=== PATIENT | female | born 1930 | race Caucasian/White ===

== ENCOUNTER 2018-09-19 15:18 | Inpatient (IN) | payer OTHER ==
[~2018-09-19] VITALS: Ht 167.6 cm; Wt 53.1 kg
[~2018-09-19 15:18] MED LIST: ASA PO; AUG875 PO; LISI-209 PO
--- NOTE | 2018-09-19 15:37 | NUR ---
Patient to ER bed H1 for evaluation. Side rails up.
[2018-09-19 15:38] VITALS: BP_SYST 127
--- NOTE | 2018-09-19 15:38 | NUR ---
Pt AAOx3 BIB BLS c/o R hip pain s/p trip and fall prior to arrival. Pt states "I can't move my leg!" 07/10 pain. No other injuries/complaints per pt/noted. Will continue to monitor.
--- NOTE | 2018-09-19 15:41 | NUR ---
ER Dr. GROSS at bedside examining patient.
[2018-09-19] MEDS ORDERED: fentaNYL CITRATE/PF 100 MCG/2 ML AMP IVP ONE (15:45)
--- NOTE | 2018-09-19 16:05 | NUR ---
PT RETURNED FROM RADIOLOGY
--- NOTE | 2018-09-19 16:23 | NUR ---
Fentanyl 50 mcg IVP administered. Pt tolerated well. No adverse reactions noted.
[2018-09-19 16:28] LABS: ANION GAP 7 (5-15); CALCIUM 8.6 mg/dL (8.4-11.0); CHLORIDE 105 mmol/L (98-107); CREATININE 0.79 mg/dL (0.55-1.30); GLUCOSE 183 mg/dL (70-99); POTASSIUM 3.5 mmol/L (3.5-5.1); SODIUM SERUM 139 mmol/L (136-145); UREA NITROGEN, BLOOD 26 mg/dL (8-21)
[2018-09-19 16:31] LABS: INR 0.9 (0.8-1.2); PROTHROMBIN TIME 9.6 SECS (9.5-12.5)
[2018-09-19 16:32] LABS: ALANINE AMINOTRANSFERASE 18 U/L (12-78); ALBUMIN 3.1 g/dL (3.4-4.8); ASPARTATE AMINOTRANSFERASE 17 U/L (10-37); TOTAL BILIRUBIN 0.2 mg/dL (0.0-1.0)
[2018-09-19 16:42] LABS: BILIRUBIN,URINE NEGATIVE (NEGATIVE); BLOOD, URINE 1+ (NEGATIVE); CLARITY/URINE SL CLOUDY (CLEAR); COLOR,URINE YELLOW (YELLOW); GLUCOSE,URINE TRACE (NEGATIVE); KETONES,URINE TRACE (NEGATIVE); LEUKOCYTE ESTERASE ,URINE 2+ (NEGATIVE); NITRITE, URINE POSITIVE (NEGATIVE); PROTEIN URINE NEGATIVE (NEGATIVE); UROBILINOGEN,URINE 0.2 (0.2-1.0)
[2018-09-19 16:49] LABS: BACTERIA,URINE MODERATE /HPF (None Seen); WBC,URINE >100 /HPF (0-3)
[2018-09-19] MEDS ORDERED: cefTRIAXone 1 GM IVPB PREMIX 50 ML IV ONE (17:00)
[2018-09-19 17:07] LABS: BASOPHILS % (AUTO) 0.1 % (0.0-2.0); EOSINOPHILS # (AUTO) 0.2 K/uL (0.0-0.4); EOSINOPHILS % (AUTO) 2.4 % (0.0-4.0); HEMATOCRIT 34.7 % (36-48); HEMOGLOBIN 11.8 g/dL (12.0-16.0); LYMPHOCYTES # (AUTO) 1.2 K/uL (1.0-5.5); LYMPHOCYTES % (AUTO) 15.8 % (20.5-51.5); MEAN CORPUSCULAR HEMOGLOBIN 31 pg (27-31); MEAN CORPUSCULAR HGB CONC 34 % (32-36); MEAN CORPUSCULAR VOLUME 91 fL (79.0-98.0); MONOCYTES # (AUTO) 0.6 K/uL (0.0-1.0); MONOCYTES % (AUTO) 7.7 % (1.7-9.3); NEUTROPHILS # (AUTO) 5.4 K/uL (1.8-7.7); PLATELET COUNT (AUTO) 193 K/uL (130-430); RED CELL DISTRIBUTION WIDTH 14.5 % (9.0-15.0); WHITE BLOOD COUNT (AUTO) 7.4 K/uL (4.8-10.8)
--- NOTE | 2018-09-19 17:36 | NUR ---
Rocephin 1 gm administered. Pt tolerated well. No adverse reactions noted.
--- NOTE | 2018-09-19 18:07 | NUR ---
Patient will be admitted to [facility]. Admitted to Medsurg unit. Will go to room 123A. Summary report printed. Report will be given at bedside.
--- NOTE | 2018-09-19 18:18 | NUR ---
Admission: Received from ER on a gurney with the diagnosis of Right hip fracture. Patient is alert and oriented. Oquendo catheter algerian 16 inserted in the ER with yellow urine output. Oriented to room routine, call light within reach. Accompanied by and daughter.
--- NOTE | 2018-09-19 18:30 | NUR ---
Report: Report given to [facility] nurse,patient comfortable,with mild pain and family at the bedside.
[2018-09-19 18:35] VITALS: BP_SYST 144
[2018-09-19] MEDS ORDERED: ONDANSETRON HCL 4 MG/2 ML VIAL IVP PRN (19:00)
[2018-09-19] MEDS ORDERED: MORPHINE 4 MG/ML INJ. SYRINGE IVP PRN ×2 (19:00)
--- NOTE | 2018-09-19 19:12 | NUR ---
patient comfortable in bed, family at bedside, endorsed care to Giulia LIEBERMAN.
[2018-09-19 20:00] VITALS: BP_SYST 138
--- NOTE | 2018-09-19 20:00 | NUR ---
INITIAL NOTES: RECEIVED REPORT FROM LUISANA HEALY AT 1915, PATIENT IN BED AWAKE ORIENTED X3. AND CHILDREN ARE AT BEDSIDE.VITAL SIGNS TAKEN AND RECORDED.PATIENT HAS TOLERABLE PAIN TO RIGHT HIP. DAUGHTER DID ASKED MANY QUESTIONS ABOUT PLAN OF CARE , NAME OF CONSULTING AND PRIMARY DOCTORS ,PAIN MEDS ORDERED.ABLE TO ANSWER QUESTION ON THEIR UNDERSTANDING.SALINE LOCK PATENT. ESPINOZA CATHETER DRAINING CLEAR MELANIE URINE. WILL MONITOR CLOSELY.
--- NOTE | 2018-09-19 20:25 | NUR ---
PAIN: COMPLAIN OF MODERATE RIGHT HIP FRACTURED PAIN. INFORMED AGAIN FAMILY MORPHINE IV IS ORDERED. DAUGHTER TOLD PATIENT SISTER WHO IS AT HOME SAYS HAD BAD EXPERIENCED OF CONFUSION/WEIRED FEELING WITH MORPHINE .THEREFORE WHOLE FAMILY DECIDED NOT TO GIVE MORPHINE AND REFUSE. MENTIONED ABOUT NORCO WHICH PATIENT HAD BEFORE LONG TIME. TOLD THEM WILL INFORM MD. TYLENOL 650MG PO GIVEN FOR NOW.MORPHINE IV WAS WASTED.
[2018-09-19] MEDS: ACETAMINOPHEN 325 MG TABLET PO PRN (20:26)
--- NOTE | 2018-09-19 22:40 | NUR ---
DR. SUTHERLAND WAS PAGED 2X ,DID ANSWER THIS TIME. INFORMED MD FAMILIES REFUSE TO GIVE MORPHINE ,PREFER NORCO WHICH IS ORDERED.
[2018-09-19 23:02] VITALS: BP_SYST 132
--- NOTE | 2018-09-19 23:10 | NUR ---
CONSULT REASON FOR CONSULT: HIP FX PERSON I SPOKE WITH: KEVIN CONSULTING PHYSICIAN: DR. MORA (DR. RAJAN EXECUTOR OF ESTATE) IMMUNOLOGIST PHONE NUMBER: [phone] ORDERING PHYSICIAN: DR. SUTHERLAND
--- NOTE | 2018-09-19 23:45 | NUR ---
NORCO PO NOT GIVEN ,PATIENT SOUND ASLEEP.
--- NOTE | 2018-09-20 02:50 | NUR ---
PATIENT HAS URGE TO HAVE BOWEL MOVEMENT. PASSED LARGE GAS WHILE PLACING BED TREJO.
--- NOTE | 2018-09-20 03:00 | NUR ---
REMOVED BED TREJO. NO STOOL. PASSED GAS AGAIN, REPOSITIONED WITH PAIN.
[2018-09-20] MEDS: HYDROcodone/ACETAMIN 5-325 MG TAB (NORCO/ VICODIN) PO PRN ×2 (03:12→15:09)
--- NOTE | 2018-09-20 03:13 | NUR ---
MDICATED WITH NORCO 5/325MG PO WITH SIPS OF WATER. REFUSED MORPHINE IV.
--- NOTE | 2018-09-20 03:40 | NUR ---
ASSESSED PATIENT ,NO SIGN UNTOWARD REACTION EXCEPT CONFUSION/ FORGETFULNES WHICH IS NOT NEW.
--- NOTE | 2018-09-20 04:00 | NUR ---
KEEPS REPEATING NEEDS TO URINATE ,EXPLAIN PRESENCE OF ESPINOZA CATH. LOW ABDOMEN VERY SOFT,GOOD AMT OF URINE. SHOWED BAG TO HER.
--- NOTE | 2018-09-20 04:30 | NUR ---
HER SISTER CORI CALLED AND BOTH TALK.
--- NOTE | 2018-09-20 05:00 | NUR ---
PATIENT CALLED FEELS UPSET. NOBODY IS SEEING HER.SHE IS LEFT ALONE. AND CHILDREN LEFT WITHOUT SAYING GOOD BYE.EMOTIONAL SUPPORT AND REASSURANCES PROVIDED. STAYED WITH PATIENT AND LISTENED TO HER REPEATEDLY CONCERNS.
--- NOTE | 2018-09-20 05:50 | NUR ---
CALLED MARITA DAUGHTER REPORTED CURRENT SITUATIONS OF PATIENT, LIKE FEELING LEFT ALONE. UPSET. DAUGHTER SAID SHE WILL TALK TO HER FATHER AND SON TO COME SOON THEY CAN. INFORMED PATIENT ABOUT THE CALL AND MESSAGES,THAT FAMILIES WILL COME.
--- NOTE | 2018-09-20 07:00 | NUR ---
CLOSING: PATIENT IS VERY FORGETFUL,UPSET THIS MORNING. REASSURANCES AND EMOTIONAL SUPPORT PROVIDED. ALL NEEDS WERE ATTENDED. ESPINOZA DRAINING WELL.ENDORSED CARE TO AM RN.
[2018-09-20 08:00] VITALS: BP_SYST 128
--- NOTE | 2018-09-20 08:00 | NUR ---
A/O X3. PATIENT HAS TOLERABLE PAIN TO RIGHT HIP. IV ON THE LEFT FA, #20, SL. ESPINOZA CATHETER DRAINING CLEAR MELANIE URINE. CALL LIGHT IN PLACE, BED LOCKED AT THE LOWEST POSITION, WILL CONTINUE TO MONITOR.
--- NOTE | 2018-09-20 10:51 | NUR ---
Nutrition Update Mao Scale 15 noted. Pt admitted for hip fracture. Diet: regular BMI: 18.9 kg/m2 RD to follow per nutrition care standards.
--- NOTE | 2018-09-20 12:00 | NUR ---
DR. SUTHERLAND IS CALLED ABOUT THE DIET ORDER, AND GAVE ORDERS.
[2018-09-20 12:45] VITALS: BP_SYST 138
--- NOTE | 2018-09-20 14:30 | NUR ---
DR. MORA IS AT BEDSIDE EXPLAINING THE POC TO THE FAMILY.
[2018-09-20 16:24] VITALS: BP_SYST 130
--- NOTE | 2018-09-20 18:05 | NUR ---
PATIENT IS FED DINNER BY FAMILY WITH THE SUPERVISION OF RN. NO SIGNS OF DISTRESS NOTED.
--- NOTE | 2018-09-20 19:38 | NUR ---
OPENING NOTE RECEIVED CARE OF PT AND BEDSIDE REPORT. BUCKS TRACTION [address] PT AWAKE AND RESTING IN BED WITH FAMILY AT BEDSIDE, NO SIGNS OF ACUTE DISTRESS NOTED. FLEXI PULSE IN PLACE. NO SIGN OF INFILTRATION AT IV SITE. PT INSTRUCTED TO USE CALL LIGHT FOR ASSISTANCE, SAFETY PRECAUTIONS IN PLACE. WILL CONTINUE TO MONITOR.
--- NOTE | 2018-09-20 19:50 | NUR ---
DR. CHAVEZ IS CALLED ABOUT THE IV FLUIDS AFTER MN. ORDER IS GIVEN, WILL BE CARRIED OUT.
[2018-09-20 20:00] VITALS: BP_SYST 124
--- NOTE | 2018-09-20 23:15 | NUR ---
MRSA NARES SENT TO LAB MRSA nares sent to lab for pre-op.
--- NOTE | 2018-09-21 | NUR ---
NPO AT MIDNIGHT PT NPO FOR SURGERY. PT AND FAMILY INSTRUCTED THAT PT IS NOT TO EAT OR DRINK ANYTHING BY MOUTH. ORANGE NPO CONE PLACED AT BEDSIDE. PT INSTRUCTED TO CALL FOR ASSISTANCE, SAFETY PRECAUTIONS OBSERVED. WILL CONTINUE TO MONITOR.
[2018-09-21] MEDS: 0.45% NACL 1,000 ML IV SCH ×2 (00:22→19:29)
[2018-09-21 00:30] VITALS: BP_SYST 127
--- NOTE | 2018-09-21 00:30 | NUR ---
PRIORITY LAB REQUEST SPOKE TO JUDITH FROM LAB TO REQUEST PRIORITY AM LAB DRAW.
--- NOTE | 2018-09-21 01:50 | NUR ---
SANGY PULSES PT AND REFUSING SCD'S AT THIS TIME. EDUCATED PT REGARDING IMPORTANCE OF SCD'S, PT CONTINUED TO REFUSE. WILL CONTINUE TO REINFORCE EDUCATION.
--- NOTE | 2018-09-21 02:00 | NUR ---
REPOSITIONED/REFUSED PRN PAIN MEDICATION PT STATING THAT SHE IS IN PAIN ON RIGHT HIP, EDUCATED PT ON PRN PAIN MEDICATION. PT IS REFUSING PAIN MEDICATION AT THIS TIME. PT REPOSITIONED FOR COMFORT. WILL CONTINUE TO MONITOR.
--- NOTE | 2018-09-21 04:00 | NUR ---
BEDPAN/REFUSED CHUX CHANGE PT PUT ON BEDPAN, UNABLE TO GO AT THIS TIME. PT OFFERED BY RN AND LINEN ROOM SUPERVISOR TO CHANGE CHUX, PT REFUSED AT THIS TIME STATING THAT IT WAS NOT SOILED. SAFETY PRECAUTIONS IN PLACE, PT INSTRUCTED TO CALL FOR ASSISTANCE.
--- NOTE | 2018-09-21 05:27 | NUR ---
NURSING NOTE PT RESTING IN BED, AT BEDSIDE. PT DENIES PAIN AT THIS TIME. NO SIGNS OF ACUTE DISTRESS NOTED. PT ABLE TO WIGGLE TOES ON RIGHT FOOT. SAFETY PRECAUTIONS OBSERVED, CALL LIGHT WITH PT, PT INSTRUCTED TO CALL FOR ASSISTANCE, WILL CONTINUE TO MONITOR.
[2018-09-21 06:30] LABS: BASOPHILS # (AUTO) 0.1 K/uL (0.0-0.2); BASOPHILS % (AUTO) 0.5 % (0.0-2.0); EOSINOPHILS # (AUTO) 0.1 K/uL (0.0-0.4); EOSINOPHILS % (AUTO) 0.9 % (0.0-4.0); HEMATOCRIT 28.5 % (36-48); HEMOGLOBIN 9.1 g/dL (12.0-16.0); LYMPHOCYTES # (AUTO) 2.4 K/uL (1.0-5.5); LYMPHOCYTES % (AUTO) 23.5 % (20.5-51.5); MEAN CORPUSCULAR HEMOGLOBIN 30 pg (27-31); MEAN CORPUSCULAR HGB CONC 32 % (32-36); MONOCYTES # (AUTO) 1.2 K/uL (0.0-1.0); MONOCYTES % (AUTO) 11.9 % (1.7-9.3); NEUTROPHILS # (AUTO) 6.3 K/uL (1.8-7.7); NEUTROPHILS % (AUTO) 63.2 % (40.0-70.0); PLATELET COUNT (AUTO) 133 K/uL (130-430); RED BLOOD CELL COUNT(AUTO) 3.07 MIL/uL (4.2-6.2); RED CELL DISTRIBUTION WIDTH 13.8 % (9.0-15.0); WHITE BLOOD COUNT (AUTO) 10.1 K/uL (4.8-10.8)
[2018-09-21 06:31] LABS: ANION GAP 4 (5-15); CALCIUM 8.3 mg/dL (8.4-11.0); CHLORIDE 104 mmol/L (98-107); CREATININE 0.66 mg/dL (0.55-1.30); GLUCOSE 110 mg/dL (70-99); SODIUM SERUM 136 mmol/L (136-145); UREA NITROGEN, BLOOD 17 mg/dL (8-21)
[2018-09-21 06:33] LABS: MEAN CORPUSCULAR VOLUME 93 fL (79.0-98.0)
--- NOTE | 2018-09-21 07:35 | NUR ---
received endorsement from night nurse. patient aaox 4. no pain noted. on npo status. respiration is even and unlabored. vitals signs stable. lungs bilaterally clear. no sob noted. no oxygen. patient and is aware of the procedure for ORIF rt hip. has IV access on the left forearm #20. 1/2 normal saline of 70cc/hr infusing on well. has scds bilaterally in place. has 5 bucks traction in placed. has linton catheter in placed draining well clear yellow urine.
--- NOTE | 2018-09-21 07:56 | NUR ---
CLOSING NOTE PT RESTING IN BED WITH FAMILY AT BEDSIDE. ENDORSED CARE TO DAY SHIFT RN, BEDSIDE REPORT GIVEN. NO SIGNS OF DISTRESS, SAFETY PRECAUTIONS IN PLACE. ALL NEEDS MET DURING SHIFT.
[2018-09-21 08:21] VITALS: BP_SYST 150
--- NOTE | 2018-09-21 09:00 | NUR ---
PT TAKEN TO SURGERY, ENDORSED TO SURGERY RN.
--- NOTE | 2018-09-21 09:00 | NUR ---
patient for surgery at this time. is aware.
[2018-09-21] MEDS ORDERED: POLYMYXIN 500,000/BACIT.10,000 UNITS in NS IRR 1 L IR ONE (09:31)
--- NOTE | 2018-09-21 09:34 | NUR ---
patient on surgery for Dr. Rodríguez.
--- NOTE | 2018-09-21 10:30 | NUR ---
patient still in surgery
[2018-09-21] MEDS ORDERED: MORPHINE SULFATE 10MG/10ML PF AMP SP SCH (10:45)
[2018-09-21] MEDS ORDERED: ONDANSETRON HCL 4 MG/2 ML VIAL IVP PRN (10:45)
[2018-09-21] MEDS ORDERED: NALOXONE HCL 0.4 MG/ML AMP (NARCAN) IVP PRN ×2 (10:45)
[2018-09-21] MEDS ORDERED: NALBUPHINE HCL 10 MG/ML AMP IVP PRN (10:45)
[2018-09-21] MEDS ORDERED: fentaNYL CITRATE/PF 100 MCG/2 ML AMP IVP PRN ×2 (10:45)
[2018-09-21] MEDS ORDERED: KETOROLAC TROMETHAMINE 60 MG/2 ML VIAL IM PRN (10:45)
[2018-09-21 11:34] VITALS: BP_SYST 127
[2018-09-21] MEDS ORDERED: MILK OF MAGNESIA 30 ML UDC PO PRN (12:15)
[2018-09-21] MEDS ORDERED: DIPHENHYDRAMINE HCL 25 MG CAPSULE PO PRN (12:15)
[2018-09-21 12:30] VITALS: BP_SYST 138
--- NOTE | 2018-09-21 12:40 | NUR ---
patient came back from recovery. patient had spinal anesthesia. on report patient becomes confused and tries to get out of bed. still with LR infusing on well. rt hip dressing dry and intact. no bleeding noted. will continue to monitor patients status. has flexi pulse in placed. nerovascular checked done. will continue to monitor patients status.
--- NOTE | 2018-09-21 14:35 | NUR ---
patient alert but confused at times. knows her name. forget where she at. verbalized feels hot. afebrile. made comfortable.
--- NOTE | 2018-09-21 14:50 | NUR ---
complained of itchiness on both knees and hands, chest too. informed patient and family. will give benadryl. no pain noted.
[2018-09-21] MEDS: DIPHENHYDRAMINE INJ 50 MG/ML VIAL IVP PRN ×2 (14:57→22:47)
--- NOTE | 2018-09-21 14:57 | NUR ---
benadryl 25 mg iv given and flush with 10cc normal saline. made comfortable.
--- NOTE | 2018-09-21 15:07 | NUR ---
Dr Nuñez called for O2 Saturation low. Respiratory therapist informed respiratory treatment done. continous monitoring on the hob elevated. Abg done. latest O2 Sat is 90% on non rebreather mask.
[2018-09-21 16:25] VITALS: BP_SYST 129
--- NOTE | 2018-09-21 16:37 | NUR ---
will continue to monitor patients status.
--- NOTE | 2018-09-21 18:44 | NUR ---
repositioned to sides. no itchiness noted. monitor patient status. family still at the bedsdie.
--- NOTE | 2018-09-21 19:30 | NUR ---
OPENING NOTE RECEIVED CARE OF PT AND BEDSIDE REPORT. PT DENIES PAIN AT THIS TIME. NO SIGNS OF ACUTE DISTRESS NOTED. IVF RUNNING ORDERED, NO SIGNS OF INFILTRATION AT IV SITE. PT ABLE TO WIGGLE TOES ON RIGHT FOOT. DRESSING ON RIGHT HIP DRY AND INTACT. INCENTIVE SPIROMETER AT BEDSIDE, PT EDUCATED ON PROPER USE OF INCENTIVE SPIROMETER, PT VERBALIZED UNDERSTANDING. PT INSTRUCTED TO CALL FOR ASSISTANCE. SAFETY PRECAUTIONS IN PLACE, BED IN LOWEST POSITION, CALL LIGHT WITH PATIENT, SIDE RAILS UP, FAMILY AT BEDSIDE. WILL CONTINUE TO MONITOR.
[2018-09-21 20:00] VITALS: BP_SYST 147
[2018-09-21] MEDS: SENNOSIDES 8.6 MG TABLET PO SCH (20:11)
--- NOTE | 2018-09-21 21:00 | NUR ---
INCENTIVE SPIROMETER PT EDUCATED ON IMPORTANCE OF INCENTIVE SPIROMETER. PT VERBALIZED UNDERSTANDING. INSTRUCTED TO USE AT LEAST 10 TIMES PER HOUR. WILL CONTINUE TO EDUCATE THROUGHOUT SHIFT.
--- NOTE | 2018-09-21 23:30 | NUR ---
CONFUSED PT REMOVING GOWN AND ATTEMPTING TO TAKE OUT ESPINOZA CATHETER. REORIENTED PT AND EDUCATED REGARDING ESPINOZA CATHETER. FAMILY AT BEDSIDE. SAFETY PRECAUTIONS OBSERVED, BED IN LOWEST POSITION, CALL LIGHT WITH PATIENT, BED ALARM ON. WILL CONTINUE TO MONITOR.
[2018-09-22 00:30] VITALS: BP_SYST 141
--- NOTE | 2018-09-22 01:00 | NUR ---
REPLACED ESPINOZA CATHETER DRAINAGE BAG CATHETER DRAINAGE BAG APPEARS TO BE COMPROMISED WITH TWO PUNCTURE GERARDO. CHANGED DRAINAGE BAG USING STERILE TECHNIQUE. WILL CONTINUE TO MONITOR.
--- NOTE | 2018-09-22 04:00 | NUR ---
NURSING NOTE PT RESTING COMFORTABLY IN BED WITH EYES CLOSED. BREATHING EVEN AND EFFORTLESSLY TO ROOM AIR, SYMMETRICAL CHEST RISE AND FALL. FAMILY AT BEDSIDE. IVF INFUSING ORDERED, NO SIGNS OR SYMPTOMS OF INFILTRATION AT IV SITE. SAFETY PRECAUTIONS IN PLACE. BED IN LOWEST POSITION, CALL LIGHT WITH PATIENT, SIDE RAILS UP, BED ALARM ON. WILL CONTINUE TO MONITOR.
[2018-09-22] MEDS: 0.45% NACL 1,000 ML IV SCH ×2 (05:50→20:41)
--- NOTE | 2018-09-22 07:35 | NUR ---
CLOSING NOTE PT RESTING IN BED WITH FAMILY AT BEDSIDE. IVF INFUSING ORDERED, NO SIGNS OF INFILTRATION AT IV SITE. PT IS ABLE TO WIGGLE AND MOVE RIGHT TOES. DRESSING ON RIGHT HIP DRY AND INTACT. ALL PT NEEDS MET DURING SHIFT. ENDORSED CARE AND GAVE BEDSIDE REPORT TO DAY SHIFT RN.
[2018-09-22 08:05] VITALS: BP_SYST 155
--- NOTE | 2018-09-22 08:05 | NUR ---
INITIAL ROUNDS Received pt AAOx2, pt with no c/o pain or discomfort to her hip-pt placed on a bedpan per request. Plan of care reviewed with pt and pt's -both verbalized their understanding. IVF infusing well to LFA at ordered rate with no s/s infiltration to site. Right hip clean, dry and intact, both feet with plexi-pulses in place. Ice pack to right hip. Pt just seen by Dr. Nuñez-informed him of need for med rec to be compiled and that pt has not been seen by physical therapy yet-and no physical therapy here today. stated pt may be transferred to SNF today and okay to go and have physical therapy initiated there. Neurovascular check completed and intact. Pain management, skin and safety discussed-teach back done. Importance of using incentive spirometer discussed-teach back done. Pt now sitting up for breakfast. Call light within reach.
[2018-09-22] MEDS ORDERED: HYDR-4272 PO (08:24)
[2018-09-22] MEDS ORDERED: LOVI40 SUBCUT (08:24)
[2018-09-22] MEDS ORDERED: FERR140T PO (08:24)
[2018-09-22] MEDS ORDERED: SENN-153 PO (08:24)
[2018-09-22] MEDS: FERROUS SULFATE 140 MG TABLET.ER PO SCH (10:00)
[2018-09-22] MEDS: ASCORBIC ACID 500 MG TABLET PO SCH ×2 (10:00→20:38)
[2018-09-22] MEDS: MULTIVITAMINS TAB 1 TABLET PO SCH (10:00)
[2018-09-22] MEDS: ENOXAPARIN SODIUM 40 MG/0.4 ML SYRINGE SUBCUT SCH (10:01)
--- NOTE | 2018-09-22 10:05 | NUR ---
ROUNDS Pt given due AM medications. Pt with no s/s resp distress, no c/o pain or discomfort. Pt's son Ap in the room and stated that he is aware of DC to SNF order but that he "called several and there are no beds available". I explained to him that the assigned case sealer will contact the facilities to make arrangements -he verbalized his understanding. Physical therapy is here now to work with the patient. Call light within reach.
[2018-09-22] MEDS: ACETAMINOPHEN 325 MG TABLET PO PRN ×2 (10:51→20:38)
--- NOTE | 2018-09-22 11:01 | NUR ---
RN Note Spoke with Dr. Rodríguez in the nurses station. stated that the patient must be followed by the [facility]. Spoke with [facility] , and made her aware of the discharge order. Also made her aware that an [facility] must be arranged. Will continue to follow up.
[2018-09-22 12:02] VITALS: BP_SYST 132
--- NOTE | 2018-09-22 12:38 | NUR ---
ROUNDS Pt sitting up in bed eating her lunch, pt's at bedside. No s/s resp distress, no c/o pain or discomfort. Pt seen by Dr. Rodríguez earlier. Needs met, call light within reach.
--- NOTE | 2018-09-22 14:35 | NUR ---
ROUNDS Pt resting quietly in bed with no s/s resp distress, no c/o pain or discomfort. Additional pillow placed under pt's head for comfort/per pt request. Pt's family remains at bedside.
--- NOTE | 2018-09-22 16:01 | NUR ---
ROUNDS Pt resting quietly with no s/s resp distress, no c/o pain or discomfort. Pt requesting a stool softner-MD paged-awaiting call back. Family remains at beside.
[2018-09-22 16:02] VITALS: BP_SYST 134
--- NOTE | 2018-09-22 16:29 | NUR ---
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 Pt's family upset and are appealing the discharge-stitch cleaner spoke with the family and family to sign appeal paperwork. Shirley Noguera LVN, Design Project Manager for [employer] aware. paged to inform-awaiting call back.
--- NOTE | 2018-09-22 16:32 | NUR ---
SNF ARRANGEMENTS PATIENT'S DAUGHTER MARITA [phone] MADE AWARE OF DISCHARGE TO SNF ORDER BY DR. CHAVEZ AND DR. MORA CLEARED PATIENT FOR LOWER LEVEL OF CARE. DAUGHTER IS INSISTING ON [facility] [place] AND EXPLAINED TO HER MOM'S MEDICAL GROUP IS NOT CONTRACTED TO [facility]. I PROVIDED MARITA OVER THE PHONE THE LIST OF OTHER HCP CONTRACTED SNF'S WE HAVE NEAR THE AREA ([facility], [facility], [facility], [facility], AND [facility]) AND EXPLAINED TO HER THAT IT IS STILL UP TO THE FACILITY TO ACCEPT. MARITA SAID SHE PREFERS [facility] AND SAID SHE WILL CHECK THE OTHER SNF'S "YELP REVIEW." I EXPLAINED TO MARITA THAT THOSE YELP REVIEW ARE NOT REALLY ALWAYS ACCURATE AND SHE SHOULDN'T BASE HER PREFERENCE BASE ON THE YELP REVIEW ALONE. I TOLD MARITA I WILL SEND SNF INQUIRY TO ALL THE SNF'S I MENTIONED AND IF SHE WANTS I CAN TRY OUR [facility] AND [facility] WHICH ARE [place], [place], [place], AND [facility] BUT SHE DECLINED BECAUSE SHE SAID IT IS TOO FAR FOR HER FATHER TO DRIVE. THIS MORNING, [facility] ACCEPTED THE PATIENT TO ROOM 105B AFTER TALKING WITH PATIENT'S DAUGHTER MARITA. MARITA WAS INFORMED THTA HER MOM WAS ACCEOTED AT [facility]. SHE SAID SHE ALSO GOT A CALL FROM [facility] AND THAT SHE ASKED HER BROTHER WHO IS AT THE HOSPITAL BEDSIDE THIS MORNING AND ASKED HIM TO TOUR [facility] THIS MORNING TO SEE. HOWEVER, DAUGHTER STILL INSIST ON [facility] WHICH I AM STILL WAITING A RESPONSE FROM. NO OTHER SNF HAS RESPONDED EITHER YET. MULTIPLE CALLS MADE. MULTIPLE FOLLOW UP CALLS MADE TO [facility]. [facility] FINALLY RESPONDED AT 3PM, THE N[facility]SE [facility]MINISTRAT[facility] SAID THAT THEIR D.O.N. DECLINED THE ADMISSION THEY SEE THE PATIENT A POTENTIAL PRISON PLACEMENT AND THEY CANNOT ACCOMODATE ANY MORE PRISON PATIENT'S. PATIENT'S DAUGHTER MARITA INFORMED THAT [facility] DECLINED PLACEMENT AND CURRENTLY I STILL ONLY HAVE [facility] WILLING TO ACCEPT HER MOM. I TOLD THE MARITA THAT OTHER FACILITIES HASN'T RESPONDED YET. I TOLD MARITA THAT I ARRANGED AN AMBULANCE TO [facility] THE HER MOM OUT OF [facility] TO TAKE HER TO [facility]. SHE SAID SHE WILL INFORM HER BROTHER. AT 3:15PM I RECEIVED A CALL FROM PATIENT'S SON CINDY [phone] VERY ANGRY ASKING WHY HE DOESN'T HAVE A SAY SO ON WHERE HIS MOM GOES. I TOLD CINDY I HAVE BEEN TALKING WITH HIS SISTER MARITA OVER THE PHONE ALL DAY AND PROVIDED MARITA A LIST OF OTHER SNF'S THAT WE ARE CONTRACTED WITH THAT HIS MOM CAN GO BUT SHE CANNOT JUST GO TO A SNF THAT THEY PICKED OUT. HE IS QUESTIONING WHY HIS MOTHER CANNOT GO TO [facility] AND EXPLAINED TO HIM THAT PATIENT BELONGS TO AN HMO MEDICAL GROUP AND PATIENT NEEDS TO GO TO CONTRACT SNF ONLY. HE IS QUESTIONING WHY HIS MOM IS BEING DISCHARGE TOO SOON. AND I EXPLAINED TO HIM THAT ATTENDING MD AND ORTHO SURGEON HAS CLEARED HIS MOM FOR LOWER LEVEL OF CARE TO A SNF AND BEEN DEEMED STABLE. HE SAID HE PLANS TO APPEAL AND INFORMED HIM HE DOES HAVE THE RIGHT TO DO SO IF HE FEELS THAT WAY AND EXPLAINED TO HIM THAT IF APPEAL IS LOST THEN FINANCIAL RESPONSIBILITY WILL FALL ON THE PATIENT. SPOKE WITH PATIENT'S DAUGHTER MARITA AND INFORMED HER OF MY CONVERSATION WITH HER BROTHER CINDY THAT HE PLANNED TO APPEAL. I EXPLAINED TO HER ALSO IF APPEAL IS LOST FINANCIAL RESPONSIBILITY WILL FALL ON THEM. SHE SAID SHE WILL CALL HER BROTHER. DR. CHAVEZ MADE AWARE OF THE ISSUE. MESSAGE LEFT TO [facility] CASE MANAGEMENT TWICE. SPOKE WITH CHARGE NURSE OBDULIA AND INFORMED HER THAT PATIENT'S SON WANTS TO APPEAL THE DISCHARGE. OBDULIA WILL GET IMPORTANT MESSAGE LETTER ISSUED. SPOKE WITH HICH LUCÍA OLIVER AND INFORMED HER TOO. MEDIC 1 AMBULANCE CHANGED TO [id number], CANCELLED 5:45PM [facility]. GUTIERREZ FERREIRA, HCP COOK HELPER PASTRY [phone]
--- NOTE | 2018-09-22 18:25 | NUR ---
CLOSING NOTE Pt resting quietly in bed with no s/s resp distress, no c/o pain or discomfort. Pt's family at bedside. IVF infusing well to LFA at ordered rate with no s/s infiltration to site. Asiration, skin and safety precautions remain in place. Needs met, call light within reach.
--- NOTE | 2018-09-22 19:30 | NUR ---
INITIAL NOTES RECEIVED HANDOFF REPORT FROM OFFGOING NURSE AT THE BEDSIDE. PATIENT IS AWAKE AND ALERT, RESTING COMFORTABLY IN BED. NO SOB, NO ACUTE DISTRESS, NO COMPLAINTS OF DISCOMFORT AT THIS TIME. IVF INFUSING AT ORDERED RATE, SEE EMAR FOR DETAILS. BED IS LOCKED, IN THE LOWEST POSITION, 2X SIDE RAILS UP. PATIENT REFUSES BED ALARM. CALL LIGHT WITHIN REACH. ENCOURAGED PATIENT TO CALL FOR ASSISTANCE.
[2018-09-22 19:37] VITALS: BP_SYST 141
--- NOTE | 2018-09-22 19:45 | NUR ---
APPEAL CALLED Pt's son Ap stated that he called in the Appeal at 175 and left a detailed message.
--- NOTE | 2018-09-22 20:00 | NUR ---
EDUCATED PATIENT REGARDING INCENTIVE SPIROMETER USE AND ENCOURAGED PATIENT TO USE IT.
[2018-09-22] MEDS: SENNOSIDES 8.6 MG TABLET PO SCH (20:37)
[2018-09-22] MEDS: DOCUSATE SODIUM 100 MG CAPSULE PO SCH (20:37)
--- NOTE | 2018-09-22 20:38 | NUR ---
PROVIDED PATIENT WITH TYLENOL PRN FOR PAIN, SEE EMAR FOR DETAILS.
--- NOTE | 2018-09-23 00:51 | NUR ---
PATIENT IS RESTING COMFORTABLY IN BED WITH EYES CLOSED. NO SOB, NO ACUTE DISTRESS, NO SIGNS OF DISCOMFORT. BED IS LOCKED, IN THE LOWEST POSITION, 2X SIDE RAILS UP, BED ALARM IS ON. IVF INFUSING AT THE ORDERED RATE, SEE EMAR FOR DETAILS. CALL LIGHT WITHIN REACH. FAMILY AT THE BEDSIDE.
[2018-09-23 02:54] VITALS: BP_SYST 167
--- NOTE | 2018-09-23 02:56 | NUR ---
PATIENT'S BLOOD PRESSURE IS 167/62. PAGED DR SUTHERLAND FOR ORDERS, EXCHANGE STATED THAT DR SUTHERLAND IS ASSISTANT DIRECTOR OF PLANT OPERATIONS AND TAKING HIS OWN CALLS RIGHT NOW.
--- NOTE | 2018-09-23 04:16 | NUR ---
CALLED DR CHAVEZ. INFORMED HIM THAT THE PATIENT'S BLOOD PRESSURE IS 167/62. DR CHAVEZ ORDERED LISINOPRIL 5MG PO QDAILY, FIRST DOSE TO BE GIVEN NOW.
[2018-09-23] MEDS: LISINOPRIL 5 MG TABLET PO SCH ×2 (04:30→09:00)
--- NOTE | 2018-09-23 05:52 | NUR ---
PATIENT IS RESTING COMFORTABLY IN BED. NO COMPLAINTS OF PAIN AT THIS TIME. IVF INFUSING AT THE ORDERED RATE, SEE EMAR FOR DETAILS. BED IS LOCKED, IN THE LOWEST POSITION, 2X SIDE RAILS UP, BED ALARM IS ON. CALL LIGHT WITHIN REACH. ENCOURAGED PATIENT TO CALL FOR ASSISTANCE. FAMILY AT THE BEDSIDE.
--- NOTE | 2018-09-23 07:30 | NUR ---
AM ROUNDS: PATIENT LYING ON THE BED, AT THE BEDSIDE. REPORT GIVEN BY NIGHT NURSE ARON.RIGHT HIP DRESSING CLEAN AND DRY. ESPINOZA IN SITU. IVF ON GOING AT LEFT FOREARM INTACT. FLEXI PULSE ON BOTH LOWER EXTREMITIES ON. WITH MINIMAL PAIN OTHERWISE COMFORTABLE THIS TIME. CALL LIGHT WITH IN REACH. BED LOCKED AT LOWEST POSITION. BED ALARM ON.
--- NOTE | 2018-09-23 07:47 | NUR ---
CLOSING NOTES HANDOFF REPORT GIVEN TO ONCOMING NURSE AT THE BEDSIDE. PATIENT IS AWAKE AND ALERT, RESTING COMFORTABLY IN BED. NO SOB, NO ACUTE DISTRESS, NO COMPLAINTS OF DISCOMFORT AT THIS TIME. IVF INFUSING AT THE ORDERED RATE, SEE EMAR. BED IS LOCKED, IN THE LOWEST POSITION, 2X SIDE RAILS UP, BED ALARM IS ON. CALL LIGHT IS WITHIN REACH. FALL AND SAFETY PRECAUTIONS MAINTAINED. ALL NEEDS HAVE BEEN MET DURING THIS SHIFT.
[2018-09-23] MEDS: DOCUSATE SODIUM 100 MG CAPSULE PO SCH ×2 (09:00→20:39)
[2018-09-23] MEDS: MULTIVITAMINS TAB 1 TABLET PO SCH (10:14)
[2018-09-23] MEDS: ENOXAPARIN SODIUM 40 MG/0.4 ML SYRINGE SUBCUT SCH (10:15)
[2018-09-23] MEDS: ASCORBIC ACID 500 MG TABLET PO SCH ×2 (10:16→20:39)
[2018-09-23] MEDS: FERROUS SULFATE 140 MG TABLET.ER PO SCH (10:18)
[2018-09-23] MEDS: ACETAMINOPHEN 325 MG TABLET PO PRN ×2 (10:21→20:40)
[2018-09-23 10:26] VITALS: BP_SYST 146
--- NOTE | 2018-09-23 10:30 | NUR ---
OLAF ESPINOZA: OLAF ESPINOZA ORDERED BY DR MORA.
--- NOTE | 2018-09-23 11:30 | NUR ---
VOIDED: PHYSICAL THERAPIST ASSISTED PATIENT TO THE BEDSIDE COMMODE,VOIDED. THEN BACK TO CHAIR.STABLE.
[2018-09-23 12:00] VITALS: BP_SYST 139
--- NOTE | 2018-09-23 12:30 | NUR ---
RN ROUNDS: NOT IN ANY DISTRESS. CONTINUE TO MONITOR.
[2018-09-23 13:37] LABS: ANION GAP 9 (5-15); CALCIUM 7.6 mg/dL (8.4-11.0); CHLORIDE 104 mmol/L (98-107); CREATININE 0.69 mg/dL (0.55-1.30); GLUCOSE 115 mg/dL (70-99); POTASSIUM 3.5 mmol/L (3.5-5.1); SODIUM SERUM 138 mmol/L (136-145); UREA NITROGEN, BLOOD 14 mg/dL (8-21)
--- NOTE | 2018-09-23 13:47 | NUR ---
SOLO. SPOKE WITH CINDY AT [phone], SON OF PATIENT. EXPLAINED ABOUT CONTRACTED SNF'S, [phone]. PROVIDED THE TEL AND ADDRESS. PREFERRED SNF [id number], EXPLAINED TO HIM THERE IS NO CONTRACT WITH THIS SNF. I WILL HIM AGAIN AT 2:20 PM. ALLIE FISHER RN/CM T [phone]/ AFTER HOURS [facility] [phone]
[2018-09-23 14:26] LABS: BASOPHILS % (AUTO) 0.2 % (0.0-2.0); EOSINOPHILS # (AUTO) 0.1 K/uL (0.0-0.4); EOSINOPHILS % (AUTO) 1.1 % (0.0-4.0); HEMATOCRIT 27.1 % (36-48); HEMOGLOBIN 9.1 g/dL (12.0-16.0); LYMPHOCYTES # (AUTO) 1.4 K/uL (1.0-5.5); LYMPHOCYTES % (AUTO) 12.9 % (20.5-51.5); MEAN CORPUSCULAR HEMOGLOBIN 31 pg (27-31); MEAN CORPUSCULAR HGB CONC 34 % (32-36); MEAN CORPUSCULAR VOLUME 92 fL (79.0-98.0); MONOCYTES % (AUTO) 8.8 % (1.7-9.3); NEUTROPHILS # (AUTO) 8.3 K/uL (1.8-7.7); PLATELET COUNT (AUTO) 136 K/uL (130-430); RED BLOOD CELL COUNT(AUTO) 2.95 MIL/uL (4.2-6.2); RED CELL DISTRIBUTION WIDTH 13.9 % (9.0-15.0); WHITE BLOOD COUNT (AUTO) 10.8 K/uL (4.8-10.8)
--- NOTE | 2018-09-23 14:30 | NUR ---
RN ROUNDS: RESTING. AT THE BEDSIDE. CALL LIGHT WITH IN REACH. BED LOCKED AT LOWEST POSITION. BED ALARM ON.
--- NOTE | 2018-09-23 16:10 | NUR ---
DC PLANNING Received msg from iNlda @ [facility], ph [phone] fax [phone], that pt has appealed discharge, case #[id number]. Pt's nurse Sona already aware, states Magdalene Miller CM @ [facility] already aware. Called & left msg informing Medical Records.
[2018-09-23 16:20] VITALS: BP_SYST 132
--- NOTE | 2018-09-23 16:20 | NUR ---
RN ROUNDS: NOT IN ANY DISTRESS. FAMILY AT THE BEDSIDE. CALL LIGHT WITH IN REACH. BED LOCKED AT LOWEST POSITION. BED ALARM ON. CONTINUE TO MONITOR.
--- NOTE | 2018-09-23 18:28 | NUR ---
END OF SHIFT: PATIENT RESTING. AT THE BEDSIDE. INCENTIVE SPIROMETRY RENDERED BY PATIENT UP TO 1000ML X8 WHILE AWAKE,INSTRUCTIONS GIVEN WELL. NO COMPLAINED MADE. RIGHT HIP DRESSING CLEAN AND DRY. CALL LIGHT WITH IN REACH. BED LOCKED AT LOWEST POSITION. BED ALARM ON. PRACTICE GUIDELINES MET THROUGHOUT SHIFT.
--- NOTE | 2018-09-23 19:30 | NUR ---
INITIAL NOTES HANDOFF REPORT RECEIVED FROM OFFGOING NURSE AT THE BEDSIDE. PATIENT IS RESTING COMFORTABLY IN BED , AWAKE AND ALERT. NO SOB, NO ACUTE DISTRESS, NO SIGNS OF DISTRESS. IVF INFUSING AT THE ORDERED RATE, SEE EMAR. BED IS LOCKED, IN THE LOWEST POSITION, 2X SIDE RAILS UP, BED ALARM IS ON. CALL LIGHT IS WITHIN REACH. ENCOURAGED PATIENT TO CALL FOR ASSISTANCE. WILL CONTINUE WITH PLAN OF CARE. AT THE BEDSIDE. Addendum: 09/24/18 at 0053 by Rachel Merrill RN CORRECTION* NO IVF RUNNING AT THIS TIME
[2018-09-23 20:00] VITALS: BP_SYST 147
[2018-09-23] MEDS: NORMAL SALINE 5 ML DISP.SYRIN IVF SCH (20:40)
[2018-09-23] MEDS: SENNOSIDES 8.6 MG TABLET PO SCH (20:40)
--- NOTE | 2018-09-23 20:40 | NUR ---
PROVIDED TYLENOL PRN FOR PAIN PER MD ORDER, SEE EMAR FOR DETAILS.
--- NOTE | 2018-09-23 21:00 | NUR ---
PATIENT EDUCATED ON INCENTIVE SPIROMETER USAGE AND ENCOURAGED TO USE.
--- NOTE | 2018-09-23 22:06 | NUR ---
PATIENT ATTEMPTED TO USE THE BED TREJO FOR A BOWEL MOVEMENT, BUT WAS UNSUCCESSFUL. WILL TRY AGAIN WHEN THE PATIENT IS READY. NOW RESTING COMFORTABLY IN BED. NO SOB, NO ACUTE DISTRESS, NO COMPLAINTS OF DISCOMFORT. BED IS LOCKED, IN THE LOWEST POSITION, 2X SIDE RAILS UP, BED ALARM IS ON. CALL LIGHT WITHIN REACH. ENCOURAGED PATIENT TO CALL. AT THE BEDSIDE.
--- NOTE | 2018-09-23 23:28 | NUR ---
PATIENT RESTING COMFORTABLY IN BED, AWAKE AND ALERT. NO SOB, NO ACUTE DISTRESS, NO COMPLAINTS OF PAIN. IVF INFUSING AT THE ORDERED RATE, SEE EMAR FOR DETAILS. BED IS LOCKED, IN THE LOWEST POSITION, 2X SIDE RAILS UP, BED ALARM IS ON. CALL LIGHT WITHIN REACH. AT THE BEDSIDE. Addendum: 09/24/18 at 0053 by Rachel Merrill RN CORRECTION* NO IVF RUNNING AT THIS TIME
--- NOTE | 2018-09-23 23:30 | NUR ---
DRESSING CHANGE DONE PER DR MORA'S ORDER. PATIENT HAD A SCANT AMOUNT OF BLOOD COMING FROM THE INCISION SITE, < 1ML BLOOD, AND THE GAUZE WAS YELLOW IN COLOR. APPLIED EMULSION OIL DRESSING TO THE INCISION SITE, COVERED WITH GAUZE, AND TAPED TO THE PATIENT'S HIP. PATIENT TOLERATED DRESSING CHANGE PROCEDURE WELL.
[2018-09-24] VITALS (7 sets, daily range): BP systolic 113–152
--- NOTE | 2018-09-24 01:58 | NUR ---
PATIENT RESTING COMFORTABLY IN BED, AWAKE AND ALERT. NO SOB, NO ACUTE DISTRESS, NO COMPLAINTS OF DISCOMFORT. BED IS LOCKED, IN THE LOWEST POSITION, 2X SIDE RAILS UP, BED ALARM IS ON. AT THE BEDSIDE. CALL LIGHT WITHIN REACH. ENCOURAGED PATIENT TO CALL FOR ASSISTANCE. PATIENT ABLE TO VOID IN THE BEDPAN AT THIS TIME. PERINEAL CARE PROVIDED BY BENCH MOVER.
--- NOTE | 2018-09-24 03:03 | NUR ---
DR MORA CALLED. UPDATED DR MORA WITH PATIENT'S CURRENT STATUS, PAIN MANAGEMENT TREATMENT, AND WOUND CARE TREATMENT. NO FURTHER QUESTIONS FROM DR MORA AT THIS TIME.
--- NOTE | 2018-09-24 04:59 | NUR ---
PATIENT IS AWAKE AND ALERT, RESTING COMFORTABLY IN BED. NO SOB, NO ACUTE DSITRESS. NO COMPLAINTS OF DISCOMFORT AT THIS TIME. CALL LIGHT WITHIN REACH. ENCOURAGED PATIENT TO CALL FOR ASSISTANCE. AT THE BEDSIDE.
[2018-09-24] MEDS: NORMAL SALINE 5 ML DISP.SYRIN IVF SCH ×3 (05:13→20:10)
--- NOTE | 2018-09-24 07:39 | NUR ---
CLOSING NOTES HANDOFF REPORT GIVEN TO ONCOMING DAYSHIFT NURSE AT THE BEDSIDE. PATIENT IS RESTING COMFORTABLY IN BED WITH EYES CLOSED. NO SOB, NO ACUTE DISTRESS, NO SIGNS OF DISCOMFORT. BREATHING IS EVEN AND UNLABORED WITH VISIBLE CHEST RISE AND FALL NOTED. CALL LIGHT IS WITHIN REACH. FALL AND SAFETY PRECAUTIONS MAINTAINED. ALL NEEDS HAVE BEEN MET DURING THIS SHIFT.
--- NOTE | 2018-09-24 07:40 | NUR ---
AM ROUNDS: PATIENT ON THE BED,AWAKE,ALERT AND FORGETFUL AT TIMES. REPORT GIVEN BY NIGHT NURSE ARON. BILATERAL FLEXI PULSE ON.RIGHT HIP DRESSING CLEAN AND DRY. STABLE. CALL LIGHT WITH IN REACH. BED LOCKED AT LOWEST POSITION. BED ALARM ON. CONTINUE TO MONITOR. AT THE BEDSIDE.
[2018-09-24] MEDS: ASCORBIC ACID 500 MG TABLET PO SCH ×2 (09:10→20:09)
[2018-09-24] MEDS: FERROUS SULFATE 140 MG TABLET.ER PO SCH (09:10)
[2018-09-24] MEDS: LISINOPRIL 5 MG TABLET PO SCH (09:10)
[2018-09-24] MEDS: MULTIVITAMINS TAB 1 TABLET PO SCH (09:10)
[2018-09-24] MEDS: DOCUSATE SODIUM 100 MG CAPSULE PO SCH ×2 (09:10→20:09)
--- NOTE | 2018-09-24 09:10 | NUR ---
MED PASS: DUE PO MEDS GIVEN. NO ADVERSE REACTIONS NOTED. WELL TOLERATED.
[2018-09-24] MEDS: ENOXAPARIN SODIUM 40 MG/0.4 ML SYRINGE SUBCUT SCH (09:18)
[2018-09-24] MEDS ORDERED: CEFAZOLIN 2 GM IVPB PREMIX 50 ML IV ONE (09:25)
[2018-09-24] MEDS ORDERED: LR 1,000 ML IV.SOLN IV ONE (09:25)
[2018-09-24] MEDS ORDERED: MIDAZOLAM HCL 5 MG/5 ML VIAL IVP ONE (09:25)
[2018-09-24] MEDS ORDERED: PROPOFOL 200MG/ 20ML VIAL (DIPRIVAN) IV ONE (09:25)
--- NOTE | 2018-09-24 10:20 | NUR ---
RN ROUNDS: RESTING. NO NEEDS THIS TIME. AT THE BEDSIDE.
--- NOTE | 2018-09-24 12:00 | NUR ---
MEAL: LUNCH SERVED. AT THE BEDSIDE. CALL LIGHT WITH IN REACH. BED LOCKED AT LOWEST POSITION. BED ALARM ON.
--- NOTE | 2018-09-24 14:25 | NUR ---
BSC: ASSISTED TO BSC USING FWW. HAD A BM AND VOIDED.THEN ASSISTED BACK TO BED. CARE RENDERED.
--- NOTE | 2018-09-24 14:30 | NUR ---
DRESSING CHANGED: CLEANSE NS RIGHT HIP INCISION,PAT DRY AND COVERED WITH DRY GAUZE DRESSING,CLEAN AND DRY.
--- NOTE | 2018-09-24 16:10 | NUR ---
RN ROUNDS: RESTING. STABLE. NO COMPLAINED MADE.
--- NOTE | 2018-09-24 18:15 | NUR ---
END OF SHIFT: ASSISTED PATIENT TO THE CHAIR.NO APPETITE DURING DINNER,PTWILL EAT SNACKS LATER WHEN HUNGRY. AT THE BEDSIDE. CALL LIGHT WITH IN REACH. BED LOCKED AT LOWEST POSITION. BED ALARM ON. CONTINUE TO MONITOR.
--- NOTE | 2018-09-24 19:30 | NUR ---
INITIAL NOTES RECEIVED REPORT FROM OFFGOING NURSE AT THE BEDSIDE. PATIENT IS CURRENTLY RESTING COMFORTABLY IN BEDSIDE CHAIR. NO SOB, NO ACUTE DISTRESS, NO COMPLAINTS OF DISCOMFORT. CALL LIGHT WITHIN REACH. ENCOURAGED PATIENT TO CALL FOR ASSISTANCE. AND PATIENT'S SON AT THE BEDSIDE. WILL CONTINUE WITH PLAN OF CARE.
--- NOTE | 2018-09-24 20:00 | NUR ---
PATIENT ABLE TO DEMONSTRATE PROPER INCENTIVE SPIROMETER USAGE, CURRENTLY REACHES 1250ML. ENCOURAGED PATIENT TO USE IT EVERY HOUR WHEN AWAKE. PATIENT VERBALIZED UNDERSTANDING.
[2018-09-24] MEDS: SENNOSIDES 8.6 MG TABLET PO SCH (20:09)
--- NOTE | 2018-09-24 21:00 | NUR ---
PATIENT AMBULATED FROM BEDSIDE CHAIR, TO BEDSIDE COMMODE, TO BED. NOW RESTING COMFORTABLY IN BED. PLEXIPULSE APPLIED BACK ON THE PATIENT.
--- NOTE | 2018-09-24 22:10 | NUR ---
PATIENT CURRENTLY RESTING COMFORTABLY IN BED, AWAKE. NO SOB, NO ACUTE DISTRESS, NO SIGNS OF DISCOMFORT. BED IS LOCKED, IN THE LOWEST POSITION, 2X SIDE RAILS UP, BED ALARM IS ON. CALL LIGHT IS WITHIN REACH.
--- NOTE | 2018-09-24 23:22 | NUR ---
PATIENT IS RESTING COMFORTABLY IN BED, SLEEPING. NO SOB, NO ACUTE DISTRESS, NO SIGNS OF DISCOMFORT AT THIS TIME. BED IS LOCKED, IN THE LOWEST POSITION, 2X SIDE RAILS UP, BED ALARM IS ON. CALL LIGHT IS WITHIN REACH. IS AT THE BEDSIDE.
--- NOTE | 2018-09-25 01:23 | NUR ---
PATIENT IS RESTING COMFORTABLY IN BED WITH EYES CLOSED. NO SOB, NO ACUTE DISTRESS, NO SIGNS OF DISCOMFORT. BREATHING IS EVEN AND UNLABORED WITH VISIBLE CHEST RISE AND FALL NOTED. BED IS LOCKED, IN THE LOWEST POSITION, 2X SIDE RAILS UP, BED ALARM IS ON. CALL LIGHT IS WITHIN REACH. AT THE BEDSIDE SLEEPING.
--- NOTE | 2018-09-25 03:40 | NUR ---
PATIENT IS CURRENTLY RESTING COMFORTABLY IN BED WITH EYES CLOSED, TALKING IN HER SLEEP. NO SOB, NO ACUTE DISTRESS, NO SIGNS OF DISCOMFORT AT THIS TIME. BREATHING EVEN AND UNLABORED. CALL LIGHT IS WITHIN REACH. AT THE BEDSIDE SLEEPING.
[2018-09-25] MEDS: NORMAL SALINE 5 ML DISP.SYRIN IVF SCH (05:43)
--- NOTE | 2018-09-25 05:55 | NUR ---
PATIENT IS RESTING COMFORTABLY IN BED, AWAKE AND ALERT. NO SOB, NO ACUTE DISTRESS, NO COMPLAINTS OF PAIN AT THIS TIME. PATIENT ASSISTED TO USE THE BED TREJO, AND WAS ABLE TO VOID URINE. NOW, PATIENT IS RESTING COMFORTABLY IN BED. BED IS LOCKED, IN THE LOWEST POSITION, 2X SIDE RAILS UP, BED ALARM IS ON. CALL LIGHT IS WITHIN REACH. ENCOURAGED PATIENT TO CALL FOR ASSISTANCE. AT THE BEDSIDE.
--- NOTE | 2018-09-25 07:26 | NUR ---
CLOSING NOTES REPORT GIVEN TO ONCOMING DAYSHIFT NURSE AT THE BEDSIDE. PATIENT IS AWAKE AND ALERT, RESTING COMFORTABLY IN BED. NO SOB, NO ACUTE DISTRESS, NO COMPLAINTS OF PAIN AT THIS TIME. IV SITE IS INTACT, DRESSING CLEAN AND DRY, SALINE LOCKED. BED IS LOCKED, IN THE LOWEST POSITION, 2X SIDE RAILS UP, BED ALARM IS ON. FALL AND SAFETY PRECAUTIONS MAINTAINED. ALL NEEDS HAVE BEEN MET DURING THIS SHIFT. AT THE BEDSIDE.
--- NOTE | 2018-09-25 07:55 | NUR ---
OPENING NOTES, RECEIVED PT IN BED, PT IS AAOX3, WITH PERIODS OF FORGETFULNESS, PT'S SPOUSE AT BEDSIDE. PT DENIES PAIN THIS TIME, NO SOB, NO RESP DISTRESS. NO BLEEDING FROM SURGICAL SITE, DRESSING IS CDI. SAFETY PRECAUTION IN PLACE. CALL LIGHT IN REACH. BED IN LOW POSITION. BED ALARM ON. PT AND FAMILY ENCOURAGED TO CALL FOR ASSIST AND PAIN MEDS AND FOR ANY CONCERNS. WILL CONT TO MONITOR.
[2018-09-25 08:00] VITALS: BP_SYST 145
[2018-09-25] MEDS: DOCUSATE SODIUM 100 MG CAPSULE PO SCH (08:58)
[2018-09-25] MEDS: ASCORBIC ACID 500 MG TABLET PO SCH (08:58)
[2018-09-25] MEDS: LISINOPRIL 5 MG TABLET PO SCH (08:59)
[2018-09-25] MEDS: MULTIVITAMINS TAB 1 TABLET PO SCH (08:59)
[2018-09-25] MEDS: FERROUS SULFATE 140 MG TABLET.ER PO SCH (08:59)
[2018-09-25] MEDS: ENOXAPARIN SODIUM 40 MG/0.4 ML SYRINGE SUBCUT SCH (09:01)
--- NOTE | 2018-09-25 10:00 | NUR ---
pt sitting on recliner chair, spouse at bedside. pt appears comfortable. call light in reach.
--- NOTE | 2018-09-25 10:02 | NUR ---
Case mgt: Voice message taken off main case mgt phone that came in on 09/24/18 at 1341 from Stefany garsia [facility] that their physician reviewer agrees with termination of service. Last covered day is 09/24/18 and financial responsibility starts for pt on 09/25/18 per voice message. Magdalene Miller, HCP supportive employment case manager made aware of this and she is speaking with family at bedside about this as per Magdalene, family doesn't want pt going to contracted SNF. ZAINA RN
--- NOTE | 2018-09-25 11:18 | NUR ---
Discharge Planning: DCP faxed pt order to Magdalene at [facility] (f [phone] p [phone]).
[2018-09-25 12:00] VITALS: BP_SYST 146
--- NOTE | 2018-09-25 12:32 | NUR ---
DR MORA HERE, TOLD PT THAT PT IS BEING TRANSFERRED TODAY TO SNF , SAID IT IS OK TO DC PT, STATED THAT PT WAS SUPPOSED TO GO YESTERDAY, SAID TO CONTINUE DAILY DRESSING CHANGE AND P.T.
[2018-09-25 13:02] VITALS: BP_SYST 146
--- NOTE | 2018-09-25 13:25 | NUR ---
REPORT GIVEN TO NURSE WAGNER
--- NOTE | 2018-09-25 13:55 | NUR ---
D/C Patient Patient given medication reconciliation form and D/C instructions. Exit Care provided. Patient verbalized understanding. MD discussed with patient the results and treatment provided. Ambulatory with steady gait for discharge to home. Patient in stable condition, ID band removed. IV catheter removed, intact and dressing applied, no active bleeding. No Rx given. List of pt's med given to patient and family. Patient educated on pain management. All belongings sent with patient. Addendum: 09/25/18 at 1810 by Fran Booth RN CORRECTION: PT IS AMBULATORY WITH ASSIST AND ASSISTIVE DEVICE. MOD- MAX ASSIST . FALL RISK. PT WAS DISCHARGE TO SNF. FAMILY WITH PT DURING DISCAHRGE.
--- NOTE | 2018-09-25 14:56 | NUR ---
DCP. MET WITH PATIENT, SPOUSE, SON CINDY AT BEDSIDE. PATIENT APPEALED THE DISCHARGED. EMILY CALLED 09/24/2018. LAST COVER DAY 09/24/2018. SPOKE WITH CINDY, HE TOURED [facility] 09/23/2018, HE DECLINED. ALSO TOURED AT A SNF AT [place], HE DECLINED TOO. HE INSISTED FOR PATIENT TO DC TO [facility], NOT CONTRACTED SNF, EXPLAINED TO HIM THAT IT IS NOT COVERED BY THE PLAN/HCP, HE UNDERSTOOD, HE IS RESPONSIBLE FINANCIALLY. BRITTANY GUERRERO A OIL TANK CAR CLEANER FROM [facility] AT BEDSIDE. PATIENT HAS BEEN ACCEPTED AT [facility]. ADDRESS [address] [place] [address] [facility], [id number]. T [phone] [facility] MADE ARRANGEMENT FOR THE AMBULANCE. PATIENT WILL NEED TO FF UP WITH [facility] ORTHOPEDIST. ALLIE FISHER RN/CM T [phone]
== END 2018-09-25 14:00 | DRG 481 ==
LOC: SED 15:18 → SMU 17:13
PROVIDERS: ADMIT Internal Medicine Hospice and Palliative Medicine; ATTEND Internal Medicine Hospice and Palliative Medicine
PROC: 30233N1 Transfusion of Nonautologous Red Blood Cells into Peripheral Vein, Percutaneous Approach (ICD-10-PCS; 2018-09-21)
PROC: 0QS606Z Reposition Right Upper Femur with Intramedullary Internal Fixation Device, Open Approach (ICD-10-PCS; principal; 2018-09-21 09:30)
DX: S72.141A Displaced intertrochanteric fracture of right femur, initial encounter for closed fracture (principal); N39.0 Urinary tract infection, site not specified; I10 Essential (primary) hypertension; F03.90 Unspecified dementia, unspecified severity, without behavioral disturbance, psychotic disturbance, mood disturbance, and anxiety; W18.30XA Fall on same level, unspecified, initial encounter; M19.90 Unspecified osteoarthritis, unspecified site; I48.91 Unspecified atrial fibrillation; F17.210 Nicotine dependence, cigarettes, uncomplicated; Y93.89 Activity, other specified; Y92.89 Other specified places as the place of occurrence of the external cause; Y99.8 Other external cause status; Z85.89 Personal history of malignant neoplasm of other organs and systems
CPT/HCPCS: 36415; 71045; 72170-TC; 73502; 76000; 80048; 80053; 81000-TC; 82550-TC; 83605; 84484; 85025; 85610-TC; 85730-TC; 86886; 86900; 86901; 86920; 87040-TC; 87081; 87086; 87186-TC; 94010; 96365; 96375; 97110-GP; 97116-GP; 97163; 97530-GP; 99285; C1713; C1769; J0690; J0696; J1200; J1650; J1885; J2250; J2270; J2274; J2704; J3010; J7120; P9021